=== PATIENT | female | born 1980 ===

== ENCOUNTER → 2018-05-18 21:39 | Outpatient (REF) | payer OTHER, SELFPAY ==
[2018-05-18 22:55] LABS: Add Manual Diff / Slide Review NO; Basophils Percent Auto 0.5 % (0-2); Eosinophils Percent Auto 10.2 % (2-4); Hematocrit 39.4 % (36-46); Hemoglobin 13.1 g/dL (12.0-16.0); Lymphocytes Percent Auto 25.5 % (25-40); Mean Corpuscular HGB Conc 33.2 % (30-36); Mean Corpuscular Hemoglobin 30.9 PG (26-34); Mean Corpuscular Volume 93.2 fL (80-100); Monocytes Percent Auto 8.2 % (3-14); Neutrophils Absolute Auto 2900 /uL (3000-5900); Neutrophils Percent Auto 55.6 % (50-75); Platelet Count 190 X10^3/uL (150-400); Red Blood Cell Count 4.23 X10^6/uL (4.0-5.2); Red Cell Distribution Width 13.6 % (11.6-14.8); White Blood Cell Count 5.2 X10^3/uL (4.5-11.0)
[2018-05-19 02:01] LABS: Hemoglobin A1C% w Est Avg Glu 5.1 % (4.0-6.0)
[2018-05-19 02:16] LABS: Alanine Aminotransferase 24 IU/L (9-52); Albumin Globulin Ratio 1.8 (1.0-2.8); Alkaline Phosphatase 49 U/L (38-126); Aspartate Aminotransferase 17 IU/L (14-36); Bilirubin Total 0.1 mg/dL (0.2-1.3); Blood Urea Nitrogen 14 mg/dL (7-17); Calcium 8.8 mg/dL (8.4-10.2); Carbon Dioxide 28 mmol/L (22-32); Chloride 104 mmol/L (98-107); Estimated Glomerular Filt Rate > 60.0 mL/min (>60); Globulin 2.2 g/dL (1.7-4.1); Glucose 86 mg/dL (70-100); HEMOLYSIS < 15 (0-50); Potassium 4.1 mmol/L (3.4-5.1); Sodium 144 mmol/L (137-145); Total Protein 6.2 g/dL (6.3-8.2)
[2018-05-19 02:28] LABS: C-Reactive Protein Quant < 0.5 mg/dL (<1.0)
[2018-05-19 02:30] LABS: Free T4, Direct Thyroxine 1.01 ng/dL (0.78-2.19)
[2018-05-19 02:35] LABS: Vitamin D 25 Hydroxy (D3) 29.3 ng/mL (30.0-100.0)
[2018-05-19 02:44] LABS: Cortisol AM (Before 10AM) 8.53 ug/dL (4.46-22.7); Thyroid Stimulating Hormone 1.47 uIU/mL (0.47-4.68)
[2018-05-19 02:48] LABS: Ferritin 11.3 ng/mL (6.27-137)
== END ==
LOC: LAB 21:39
PROVIDERS: Visit Provider Naturopath
DX: G47.33 Obstructive sleep apnea (adult) (pediatric) (principal); R53.83 Other fatigue
CPT/HCPCS: 80053; 82306; 82533; 82728; 83036; 84439; 84443; 84481; 85025; 86140